=== PATIENT | male | born 1965 | race African-American/Black ===

== ENCOUNTER → 2020-10-09 | Day surgery (SDC) | payer BC ==
[~2020-10-09] VITALS: Ht 170.2 cm; Wt 74.0 kg
[~2020-10-09] MED LIST: AMLO-187 PO; ATOR10TA60 PO; CYCL10TA2 PO; LIDOCAINE 1%/EPI 1:100,000 20 ML VIAL. INJ ONE; LOSA100T14 PO
[2020-10-09 10:53] VITALS: BP 141/83
--- NOTE | 2020-10-09 11:06 | PDOC ---
SURGICAL PROGRESS NOTE DATE: 10/09/20 TIME: 11:05 No change in dictated H&P. Vital Signs Vital Signs Date Time Temp Pulse Resp B/P (MAP) Pulse Ox O2 Delivery O2 Flow Rate FiO2 10/09/20 10:53 75 20 97 Justicifation of Admission Dx: Justifications for Admission: Justification of Admission Dx: Yes HOA COLEMAN MD Oct 09, 2020 11:06
--- NOTE | 2020-10-09 11:08 | PDOC ---
SURGICAL PROGRESS NOTE DATE: 10/09/20 TIME: 11:06 Op Note: Surgeon.......................................Josh Pre op diag.................................mass right back Post op diag...............................Mass right back under fascial Anesthesia.................................1% lidocaine with epi Procedure...................................excision 6 cm mass Drains........................................none Fluids.........................................none Blood loss...................................5cc Condition....................................satisfactory Vital Signs Vital Signs Date Time Temp Pulse Resp B/P (MAP) Pulse Ox O2 Delivery O2 Flow Rate FiO2 10/09/20 10:53 75 20 97 Justicifation of Admission Dx: Justifications for Admission: Justification of Admission Dx: Yes HOA COLEMAN MD Oct 09, 2020 11:08
--- NOTE | 2020-10-09 12:36 | DISCH ---
DISCHARGE INSTRUCTIONS Condition on Discharge Condition on Discharge: Stable Activity After Discharge Activity Instructions for Disc: Avoid exertion Diet after Discharge Diet after Discharge: No Added Sugar Wound Incision Care Wound/Incision Care: Other, see below Other wound/incision instructi: leave dressing in place..do not change unless necessary Contacting the DRYang after DC Call your doctor for: Concerns you may have Follow-Up Follow up with: call and make appt to see me in 8 days HOA COLEMAN MD Oct 09, 2020 12:36
--- NOTE | 2020-10-10 11:12 | OP ---
DATE OF SURGERY: 10/09/2020 SURGEON: Jonah Mroeno MD. PREOPERATIVE DIAGNOSIS: Mass of the right back, mid portion just about the level of the tip of the scapula. POSTOPERATIVE DIAGNOSIS: Mass of the right back, mid portion just about the level of the tip of the scapula, this was in fact subfascial. ANESTHESIA: 1% lidocaine with epinephrine. PROCEDURE: Excision of about 6 cm mass of the back, which was subfascial. DESCRIPTION OF PROCEDURE: Under local anesthesia using 1% lidocaine, the area was anesthetized after it was properly prepped with Betadine solution and draped. We made an incision following the skin lines in the oblique fashion in the area and carried this down through the skin. We did this with an 11 blade. The skin was fairly that had been almost a quarter of an inch in thickness. We got into the subQ and the mass was deep to that. We then went using a knife, extended the incision a little bit, so that we could get down to the mass and see what was going on. It was obviously under the fascia. We had to incise this and divided the fascia after we anesthetized with 1% lidocaine with epinephrine. We did this and identified the mass, which was yellowish in nature. It should be noted that it was not just circumscribed mass, it did appear to have finger-like projections and we opened the fascia and followed these and delivered all of the finger-like projections of the mass totally. It was attached deep and had to be cut off of the muscle. There was some brisk bleeding, which was controlled with cautery. The mass having slowly been dissected using Metzenbaum scissors and ____ projectile that went laterally and around it and medially also. We then completely removed the mass and sent it to pathology. The resultant defect was inspected. A 2-0 and 3-0 Vicryl was used to approximate in interrupted fashion in the fascia and the subQ was irrigated with saline. Cautery was used to stop any small bleeders and then approximated with 4-0 Vicryl. Skin was closed using 4-0 interrupted nylon suture. The procedure having been terminated now, a sterile Tegaderm dressing was applied. The blood loss was around 10 mL. Fluids given were none. No drains were used and the condition of the patient was satisfactory as he was given instructions and discharged. MARIE/LIS/SOT DR: Bib TID: [id number]
--- NOTE | 2020-10-11 09:50 | HP ---
ADMIT DATE: 10/09/2020 HISTORY OF PRESENT ILLNESS: The patient was referred because of a mass of the right back. Apparently, the history shows he has had this mass for sometime and is getting larger, family noticed it. He went to see his primary care doctor and he was referred to me. The mass does not hurt except when he gets on and/or hits it and raises back on it against a chair or something hard. Otherwise, this is just getting larger. PAST MEDICAL HISTORY: Shows normal childhood diseases. He does have hypertension, but no heart disease or diabetes. He takes medicine for that. No allergies and no other significant surgery relative to this. FAMILY HISTORY: Noncontributory. SOCIAL HISTORY: He drinks only socially, but does not use drugs, apparently does not smoke. PHYSICAL EXAMINATION: GENERAL: Shows an alert male in no acute distress. HEAD, EYES, EARS, NOSE AND THROAT: Grossly normal. CHEST: Examination of the chest showed it to be clear to auscultation bilaterally. HEART: Was unremarkable with no murmurs, heaves, friction rubs or thrills, and the rate was 70 beats per minute and was regular. BACK: Examination of the back did show just at the tip of the scapula on the right to the right of the midline, there was a mass. It was about 6-8 cm in diameter and was definitely present and appeared to be somewhat mobile. EXTREMITIES: Grossly normal. ASSESSMENT AND PLAN: Mass of the back. Suspect tumor. The patient decided to have it removed and as such, we will make arrangements for the same. We will do this under local anesthesia. TYLER/LEV DR: Bib TID: [id number]
--- NOTE | 2020-10-11 18:23 | PATHOLOGY ---
[facility] Accession Number: [id number] . 01 Material submitted: . back - BACK MASS. Modifiers: upper . 01 Clinical history: . EXC. UPPER BACK MASS BACK MASS . 02 Diagnosis: Fibroadipose tissue, upper back mass excision: - Lipoma. (JPM/db; 10/11/2020) LBQ 10/11/2020 1439 Local . 02 Electronically signed: . Brett Aj MD, Pathologist NPI- [id number] . 01 Gross description: . The specimen is received in formalin, labeled "Bob Mchugh and #1 back mass". It consists of a stanton-yellow, irregular lobulated soft tissue fragment weighing 7 g and measuring 3.9 x 3.8 x 1.3 cm. The resection surface is inked green and the specimen is sectioned to reveal stanton-yellow lobulated cut surfaces. Service Observer sections are submitted in A1. (MRF; 10/10/2020) MFE/MFE 10/10/2020 1519 Local . 02 Pathologist provided ICD-10: D17.1 . 02 CPT . 343364 Specimen Comment: A courtesy copy of this report has been sent to [phone], [phone] Specimen Comment: [id number] Specimen Comment: Report sent to / DR VELASCO Performed at: 01 [facility] [address], [place] [id number] MD Carroll Álvarez MD Phone: [phone] Performed at: 02 [facility] [address], [place] [id number] MD Brett Aj MD Phone: [phone]
== END | disposition home or self-care (01) ==
LOC: SURG 10:29
PROVIDERS: ATTEND Specialist
DX: D17.1 Benign lipomatous neoplasm of skin and subcutaneous tissue of trunk (principal); I10 Essential (primary) hypertension; E78.00 Pure hypercholesterolemia, unspecified; K21.9 Gastro-esophageal reflux disease without esophagitis; Z79.899 Other long term (current) drug therapy; Z98.890 Other specified postprocedural states; Z72.89 Other problems related to lifestyle
CPT/HCPCS: 21933; 88304; J3490